=== PATIENT | male | born 1985 | race Caucasian/White ===

== ENCOUNTER 2024-03-19 22:41 | Emergency (ER) | payer BC, SELFPAY ==
[2024-03-19 23:00] VITALS: BP 142/86; PULSE 99; RESP 16; TEMP 36.4; O2SAT 95; BMI 34.7
[2024-03-20 02:48] VITALS: BP 135/75; PULSE 78; RESP 16; TEMP 37
[2024-03-20] MEDS: KETOROLAC 10 MG TABLET PO (02:49)
[2024-03-20] MEDS: ACETAMINOPHEN 500 MG TABLET 1000 MG PO (02:49)
--- NOTE | 2024-03-20 03:56 | ED_ITS ---
HPI - General Adult General Chief complaint: Skin/Abscess/Foreign Body Stated complaint: poss allergic reaction to antibiotic Time Seen by Provider: 03/20/24 01:15 Source: patient and family Mode of arrival: ambulatory Limitations: no limitations History of Present Illness HPI narrative: 30-year-old male presents the emergency department for evaluation of painful lesions on his hands. Son with recent diagnosis of [id number] virus. Patient reports that his hands are very painful but yet he has only taken 200 mg of ibuprofen about 4 hours prior to arrival to help with his pain. He has not taken any Tylenol. No other medicines were taken earlier in the day. He was evaluated in urgent care 3 days ago, strep swab was performed and is negative. For unknown reasons, he was started on azithromycin. He has no fever. He is eating and drinking normally. He has no GI symptoms. He had a migraine 3 days ago which is resolved. He is concerned he could have gtkf-odyg-landn virus or allergic reaction to the azithromycin. He has no difficulty moving the hands and there is no trauma or injury. Feet are also painful but he has not noticed any lesions. No bloody stools, no abdominal pain. No fever. Allergy to penicillin. Reports home use of sertraline. Azithromycin as prescribed. ROS notable for the generalized, HEENT and musculoskeletal symptoms as above, otherwise denies times 12 systems. Related Data Home Medications ?Medication ?Instructions ?Recorded ?Confirmed sertraline 100 mg tablet 100 mg PO DAILY 03/18/24 03/18/24 Previous Rx's ?Medication ?Instructions ?Recorded azithromycin 250 mg tablet See Rx Instructions PO .COMPLEX #6 03/18/24 tabs Allergies Allergy/AdvReac Type Severity Reaction Status Date / Time Penicillins Allergy Verified 03/18/24 14:02 Exam Const: Vital Signs, click to edit/add: Vital Signs - 24 hr 03/19/24 23:00 03/20/24 02:48 Temperature 97.5 F L 98.6 F Pulse Rate [Pulse Oximeter] 99 78 Respiratory Rate 16 16 Blood Pressure [Ri ght Upper Arm] 142/86 H 135/75 Pulse Oximetry 95 Oxygen Delivery Me thod Room Air Documenting provider has reviewed patient's vital signs: yes Common normals: no apparent distress General appearance: cooperative HENMT: Common normals: normocephalic Head and scalp: normocephalic Face and sinus: normal facial exam Other: Mild erythema and white exudate to tonsillar pillars. No significant signs of abscess or swelling. Moist mucosa. Normal dentition. Eye: Common normals: conjunctivae normal General eye: normal appearance of both eyes Conjunctiva: conjunctiva(e) normal Neck & C-Spine: Common normals: full ROM and no lymphadenopathy Resp: Common normals: normal respiratory effort, no use of accessory muscles and clear to auscultation bilaterally Effort & inspection: able to speak in complete sentences Auscultation: clear to auscultation bilaterally Cardio: Common normals: regular rate, regular rhythm, S1 normal heart sound, S2 normal heart sound and no murmurs Rate: regular rate Rhythm: regular rhythm Heart sounds: S1 normal and S2 normal Extremity: Other: Normal range of motion of hands with no swelling. Skin revealing typical red viral non blistery appearance of macules. No drainage or pustules. Psych: Attitude: calm Activity/motor behavior: appropriate eye contact Insight: fair Judgement: fair Skin: Narrative: Macules on palms of hands as described above. No blisters or pustules. No lesions on feet noted at this time. Course Course ED Course: Counseled patient on findings. I do think that his sore throat is viral also, likely [id number] virus. Counseled that symptoms are typically from viruses that can last 2-3 weeks total. There is no fever, signs of dehydration. He has no symptoms of systemic illness, tachycardia, hypoxia or other dangerous sequelae. I do not recommend any blood testing. Patient is very concerned about his level of pain. I counseled him that it would be most appropriate if he would use proper doses of qyqu-jys-fkxllsm medications like Tylenol and ibuprofen. Proper dosage and timing discussed. Written instructions are provided. He is fully cleared to return to work at this time. Tylenol and Toradol will be given in ED x1. He will continue home dosing. Okay to use [id number]-zsh-mbfcobz sleep aids as needed. Recheck if not improving in 2-3 weeks. Alarm symptoms reviewed and written instructions provided. Vital Signs Vital signs: Initial Vital Signs Temperature 97.5 F L 03/19/24 23:00 Temperature Source Temporal Artery Scan 03/19/24 23:00 Pulse Rate 99 03/19/24 23:00 Respiratory Rate 16 03/19/24 23:00 Blood Pressure 142/86 H 10/25/24 23:00 Blood Pressure Mean 104 03/19/24 23:00 Blood Pressure Position Sitting 03/19/24 23:00 Pulse Oximetry 95 03/19/24 23:00 Oxygen Delivery Method Room Air 03/19/24 23:00 Vital Signs Temperature 97.5 F L 03/19/24 23:00 Pulse Rate 99 03/19/24 23:00 Respiratory Rate 16 03/19/24 23:00 Blood Pressure 142/86 H 03/19/24 23:00 Pulse Oximetry 95 03/19/24 23:00 Oxygen Delivery Method Room Air 03/19/24 23:00 Temperature 98.6 F 03/20/24 02:48 Pulse Rate 78 03/20/24 02:48 Respiratory Rate 16 03/20/24 02:48 Blood Pressure 135/75 03/20/24 02:48 Pulse Oximetry 95 03/19/24 23:00 Oxygen Delivery Method Room Air 03/19/24 23:00 Medications Administered Medications: Discontinued Medications Generic Name Dose Route Start Last Admin Trade Name Crow PRN Reason Stop Dose Admin Acetaminophen 1,000 mg 03/20/24 02:33 03/20/24 02:49 Acetaminophen 500 Mg Tablet PO 03/20/24 02:34 1,000 mg ONCE ONE Administration Ketorolac Tromethamine 10 mg 03/20/24 02:33 03/20/24 02:49 Ketorolac 10 Mg Tablet PO 03/20/24 02:34 10 mg ONCE ONE Administration Discharge Plan Discharge Clinical Impression: Stomatitis, viral Instructions: Oral Mucositis (ED) Additional Instructions: As we discussed, your sore throat, blisters on your hands and headache are all caused by the same virus. Since you were prescribed antibiotics, please finish these. They may help with some of the inflammation from the virus. I do not think that the blisters on your hands are an allergic reaction. This virus will last for 2-3 weeks total. You need to use proper doses of Tylenol which is 1000 mg every 6 hours as needed for pain and ibuprofen 600 mg every 6 hours for pain. You may use both of these, as they are different families. Mild GI symptoms and low-grade fever are also common. You are fully medically cleared to return to all work and or school duties at this time. Follow-up with your primary care provider if her symptoms do not improve in about 3 weeks. Activity Level: No Restrictions Discharge Diet: Regular Prescriptions: No Action sertraline 100 mg tablet 100 mg PO DAILY azithromycin 250 mg tablet See Rx Instructions PO .COMPLEX Qty: 6 0RF Rx Instructions: For 250 mg dose pack: take 500 mg today (day 1), then 250 mg for 4 days (days 2-5) PO Follow Up/Referrals: Provider,Not a Local [Non-Staff] - Stand Alone Forms: [employer] Info Instructions
== END 2024-03-20 02:50 | disposition home or self-care (01) ==
LOC: ED 03-20 02:43
PROVIDERS: Emergency Provider Family Medicine; PCP Family Medicine; Visit Provider Family Medicine
DX: K12.1 Other forms of stomatitis (principal)
CPT/HCPCS: 99283; A9270